=== PATIENT | male | born 1960 | race Caucasian/White ===

== ENCOUNTER 2018-12-11 10:16 | Emergency (ER) | payer BC ==
[2018-12-11 11:32] LABS: ADD MAN DIFF? NO
[2018-12-11 11:38] LABS: ADD UMIC YES; UR ASCORBIC ACID NEGATIVE (NEGATIVE); UR BILIRUBIN (Dip) NEGATIVE (NEGATIVE); UR BLOOD (Dip) NEGATIVE (NEGATIVE); UR CLARITY CLEAR (CLEAR); UR COLOR YELLOW (YELLOW); UR GLUCOSE (Dip) 1+ mg/dL (NEGATIVE); UR KETONES (Dip) NEGATIVE (NEGATIVE); UR LEUKOCYTE ESTERASE (Dip) NEGATIVE Leu/ul (NEGATIVE); UR NITRITE (Dip) NEGATIVE (NEGATIVE); UR RBC 1 /HPF (0-5); UR SPECIFIC GRAVITY (Dip) 1.016 (1.003-1.030); UR TOTAL PROTEIN (Dip) 2+ mg/dl (NEGATIVE); UR UROBILINOGEN (Dip) NEGATIVE (NEGATIVE); UR WBC 1 /HPF (0-5)
[2018-12-11] MEDS: SODIUM CHLORIDE 0.9% 1L BAG IV* (11:41)
[2018-12-11 11:55] LABS: PROTIME 11.2 Sec (11.9-14.9); PT RATIO 0.9
[2018-12-11 12:05] LABS: ALANINE AMINOTRANSFERASE 24 IU/L (13-69); ALBUMIN 3.5 g/dl (3.3-4.9); ALBUMIN/GLOBULIN RATIO 1.12; ALKALINE PHOSPHATASE 45 IU/L (42-121); ANION GAP 10 (5-13); ASPARTATE AMINO TRANSFERASE 20 IU/L (15-46); BILIRUBIN,INDIRECT 0.5 mg/dl (0-1.1); BILIRUBIN,TOTAL 0.5 mg/dl (0.2-1.3); BLOOD UREA NITROGEN 29 mg/dl (7-20); CALCIUM 8.9 mg/dl (8.4-10.2); CARBON DIOXIDE 24 mmol/L (21-31); CHLORIDE 105 mmol/L (97-110); CREATININE 1.15 mg/dl (0.61-1.24); Estimated GFR > 60 mL/min (>60); GLUCOSE 215 mg/dl (70-220); POTASSIUM 4.6 mmol/L (3.5-5.1); SODIUM 139 mmol/L (135-144); TOTAL PROTEIN 6.6 g/dl (6.1-8.1)
[2018-12-11 12:07] LABS: C-REACTIVE PROTEIN < 0.5 mg/dl (0.0-0.9)
[2018-12-11 12:12] LABS: TROPONIN-I < 0.012 ng/ml (0.000-0.120)
[2018-12-11 12:36] LABS: ERYTHROCYTE SEDIMENTATION RATE 48 mm/Hr (0-20)
[2018-12-11 16:38] LABS: WHITE BLOOD COUNT 5.6 10^3/ul (4.8-10.8)
[2018-12-11 16:38] LABS: BASOPHIL # 0.1 10^3/ul (0.0-0.1); BASOPHILS % 0.9 % (0.0-2.0); EOSINOPHILS # 0.1 10^3/ul (0.0-0.5); EOSINOPHILS % 1.3 % (0.0-7.0); HEMATOCRIT 31.1 % (42.0-52.0); HEMOGLOBIN 10.2 g/dl (14.0-18.0); LYMPHOCYTES # 1.5 10^3/ul (0.8-2.9); MEAN CORPUSCULAR HEMOGLOBIN 30.3 pg (29.0-33.0); MEAN CORPUSCULAR HGB CONC 32.8 g/dl (32.0-37.0); MEAN CORPUSCULAR VOLUME 92.3 fl (82.0-101.0); MEAN PLATELET VOLUME 11.3 fl (7.4-10.4); MONOCYTE # 0.6 10^3/ul (0.3-0.9); NEUTROPHIL # 3.4 10^3/ul (1.6-7.5); NEUTROPHILS % 60.3 % (39.0-77.0); PLATELET COUNT 320 10^3/UL (140-415); RED BLOOD COUNT 3.37 10^6/ul (4.70-6.10); RED CELL DISTRIBUTION WIDTH 13.2 % (11.5-14.5)
== END 2018-12-11 15:06 | disposition home or self-care (01) ==
LOC: E/R 10:16
DX: M79.672 Pain in left foot (principal); E11.9 Type 2 diabetes mellitus without complications
CPT/HCPCS: 36415; 73630-LT; 80053; 81001; 83605; 84484; 85025; 85610; 85651; 85730; 86140; 87040-91; 87086; 93005; 99285-25